=== PATIENT | female | born 1985 | race Hispanic/Latino ===

== ENCOUNTER → 2022-07-08 15:52 | Outpatient (CLI) | payer OTHER, SELFPAY ==
--- NOTE | 2022-07-08 15:58 | DI.MRI.S_ITS ---
PROCEDURE: MR HEAD/BRAIN WO CON INDICATIONS: Headache, unspecified TECHNIQUE: Noncontrast axial T1 spin echo, axial T2 fast spin echo, sagittal and axial FLAIR, coronal T2 fast spin echo, axial gradient echo, axial diffusion and ADC through the brain. COMPARISON: None. FINDINGS: Image quality: Excellent. CSF Spaces: Basal cisterns are patent. No extra-axial fluid collections. Ventricles are normal in size and shape. Brain: No intracranial masses or hemorrhage. Sol/white matter interface is normal. Brainstem appears normal. Diffusion-weighted images demonstrate no acute ischemic insult. No chronic ischemic insults. Normal intravascular flow voids are present. Skull and face: In the supraorbital left frontal bone, there is a 1.7 by 0.6 cm ovoid structure which is hyperintense and well-defined Sinuses: Sinuses and mastoids are clear. IMPRESSION: 1. Intrinsic 1.6 cm osseous lesion in the supra orbital left frontal bone is nonspecific. Differential considerations include small impacted recess of the left frontal bone and intrinsic osseous lesion. Consider follow-up maxillofacial CT without contrast. Approved by: Mingo Neville M.D. on 07/08/2022 at 17:33
== END ==
PROVIDERS: PCP Physician Assistant; Referring Provider Physician Assistant; Visit Provider Physician Assistant
DX: R51.9 Headache, unspecified (principal); M89.9 Disorder of bone, unspecified
CPT/HCPCS: 70551